=== PATIENT | male | born 1950 | race Caucasian/White ===

== ENCOUNTER 2017-02-28 09:49 | Emergency (ER) | payer MEDICARE, MEDICAID ==
[2017-02-28 10:43] VITALS: BP 117/66
--- NOTE | 2017-02-28 12:20 | EDM.PDOC ---
ED HPI GENERAL MEDICAL PROBLEM - General Stated Complaint: Dizzyness and lightheadedness Time Seen by Provider: 02/28/17 10:25 Source of Information: Reports: Patient History Limitations: Reports: No Limitations - History of Present Illness Onset: Gradual, Other (Yesterday) Onset Date: 02/27/17 Onset Time: 13:00 Duration: Day(s): (1) Location: Reports: Head, Generalized (Lightheadedness) Quality: Reports: Other (Lightheadedness) Severity: Mild Improves with: Reports: Other (Being off boat) Worsens with: Reports: Movement Context: Reports: Other (Developed on ) Associated Symptoms: Reports: No Other Symptoms, Other (Mild nausea yesterday on boat.) ED ROS GENERAL - Review of Systems Review Of Systems: See Below Constitutional: Reports: Other (Lightheadedness) HEENT: Reports: No Symptoms Respiratory: Reports: No Symptoms Cardiovascular: Reports: No Symptoms Endocrine: Reports: No Symptoms GI/Abdominal: Reports: No Symptoms : Reports: No Symptoms Musculoskeletal: Reports: No Symptoms Skin: Reports: No Symptoms Neurological: Reports: No Symptoms Psychiatric: Reports: No Symptoms Hematologic/Lymphatic: Reports: No Symptoms Immunologic: Reports: No Symptoms ED EXAM, DIZZINESS - Physical Exam Exam: See Below Exam Limited By: No Limitations General Appearance: Alert, WD/WN, No Apparent Distress Eye Exam: Bilateral Eye: EOMI (Nystagmus) Nystagmus: reproducible Ears: Normal External Exam, Normal Canal, Hearing Grossly Normal, Normal TMs Nose: Normal Inspection, Normal Mucosa, No Blood Throat/Mouth: Normal Inspection, Normal Lips, Normal Teeth, Normal Gums, Normal Oropharynx, Normal Voice, No Airway Compromise Head Exam: Atraumatic, Normocephalic Vertigo: short duration Neck: Normal Inspection Respiratory/Chest: No Respiratory Distress, Lungs Clear, Normal Breath Sounds, No Accessory Muscle Use, Chest Non-Tender Cardiovascular: Normal Peripheral Pulses, Regular Rate, Rhythm, No Edema, No Gallop, No JVD, No Murmur, No Rub GI/Abdominal: Normal Bowel Sounds, Soft, Non-Tender, No Organomegaly, No Distention, No Abnormal Bruit, No Mass Neurological: Alert, Normal Mood/Affect, Normal Dorsiflexion, CN II-XII Intact, Normal Plantar Flexion, Normal Gait, Normal Reflexes, No Motor/Sensory Deficits , Oriented x 3 Extremities: Normal Inspection, Normal Range of Motion, Non-Tender, No Pedal Edema, Normal Capillary Refill Psychiatric: Normal Affect, Normal Mood Skin Exam: Warm, Dry, Intact, Normal Color, No Rash Course - Vital Signs Text/Narrative:: Uneventful ED course. It was determined that he had seasickness and he will stay off the boat and will take Antivert 25 mg orally three times a day as needed. Last Recorded V/S: Last Vital Signs Temp 36.9 C 02/28/17 10:40 Pulse 80 02/28/17 10:40 Resp 16 02/28/17 10:40 BP 117/66 02/28/17 10:40 Pulse Ox 99 02/28/17 10:40 - Orders/Labs/Meds Orders: Active Orders 24 hr Category Date Time Status EKG Documentation Completion [RC] ASDIRECTED Care 02/28/17 10:28 Active Labs: Laboratory Tests 02/28/17 02/28/17 02/28/17 Range/Units 11:00 11:00 11:00 WBC 5.1 (4.0-11.0) K/uL RBC 4.87 (4.50-6.50) M/uL Hgb 13.9 (13.0-18.0) g/dL Hct 41.7 (40.0-54.0) % MCV 86 (76-96) fL MCH 28.5 (27.0-32.0) pg MCHC 33.3 (31.0-35.0) g/dL RDW 14.8 (11.0-16.0) % Plt Count 170 (150-400) K/uL MPV 9.7 (6.0-10.0) fL Neut % (Auto) 61.9 (45.0-70.0) % Lymph % (Auto) 26.1 (20.0-40.0) % [place] % (Auto) 9.3 (3.0-10.0) % Eos % (Auto) 2.5 (1.0-5.0) % Baso % (Auto) 0.2 (0.0-0.5) % Neut # (Auto) 3.18 (2.00-7.50) K/uL Lymph # (Auto) 1.34 L (1.50-4.00) K/uL [place] # (Auto) 0.48 (0.20-0.80) K/uL Eos # (Auto) 0.13 (0.04-0.40) K/uL Baso # (Auto) 0.01 L (0.02-0.10) K/uL Sodium 143 (136-145) mmol/L Potassium 4.5 (3.5-5.1) mmol/L Chloride 108 H (98-107) mmol/L Carbon Dioxide 29.6 (21.0-32.0) mmol/L Anion Gap 9.9 (5.0-15.0) mmol/L BUN 20 (8-26) mg/dL Creatinine 1.06 (0.70-1.30) mg/dL Est Cr Clr Drug Dosing 69.82 mL/min Estimated GFR (MDRD) > 60 (>60) MLS/MIN BUN/Creatinine Ratio 18.9 (6-25) Glucose 105 H (74-100) mg/dL Calcium 8.9 (8.5-10.1) mg/dL Total Bilirubin 0.4 (0.0-1.0) mg/dL AST 25 (15-37) U/L ALT 44 (12-78) U/L Alkaline Phosphatase 98 (46-116) U/L Troponin I < 0.017 (0.000-0.060) ng/mL Total Protein 7.6 (6.4-8.2) g/dL Albumin 3.6 (3.4-5.0) g/dL Globulin 4.0 (2.2-4.2) g/dL Albumin/Globulin Ratio 0.9 (0.8-2.0) Departure - Departure Time of Disposition: 12:34 Disposition: Home, Self-Care 01 Condition: Good Clinical Impression: Labyrinthine dysfunction, Seasickness - Discharge Information Instructions: Motion Sickness Referrals: PCP,None [Primary Care Provider] - - My Orders Last 24 Hours: My Active Orders 02/28/17 10:28 EKG Documentation Completion [RC] ASDIRECTED - Assessment/Plan Last 24 Hours: My Active Orders 02/28/17 10:28 EKG Documentation Completion [RC] ASDIRECTED
== END 2017-02-28 12:36 | disposition home or self-care (01) ==
LOC: LB.ED 09:49
DX: T75.3XXA Motion sickness, initial encounter (principal); H83.09 Labyrinthitis, unspecified ear; H55.00 Unspecified nystagmus
CPT/HCPCS: 36415; 80053; 84484; 85025; 93005; 99283; 99284-25